=== PATIENT | female | born 1990 | race Caucasian/White ===

== ENCOUNTER 2023-04-09 17:47 | Emergency (ER) | payer BC ==
[~2023-04-09] VITALS: Ht 152.4 cm; Wt 84.6 kg
[2023-04-09 18:52] LABS: Basophils # (auto) 0 10 ^3/uL (0-0.2); Basophils % (auto) 0.2 % (0.0-2.0); Eosinophils # (auto) 0.2 10 ^3/uL (0-0.8); Eosinophils % (auto) 1.2 % (0.0-7.0); Hemoglobin 13.6 g/dL (12.2-16.2); Lymphocytes # (auto) 1.6 10 ^3/uL (0.4-5.4); Lymphocytes % (auto) 13.1 % (10.0-50.0); Mean Corpuscular Hemoglobin 27.3 pg (28.0-32.0); Mean Corpuscular Hgb Conc. 33.2 g/dL (32.0-36.0); Mean Corpuscular Volume 82.4 fL (80.0-100.0); Monocytes # (auto) 0.9 10 ^3/uL (0-1.3); Monocytes % (auto) 7.4 % (0.0-12.0); Neutrophils # (auto) 9.9 10 ^3/uL (1.6-8.6); Neutrophils % (auto) 78.1 % (37.0-80.0); Red Blood Cells 4.97 10^6/uL (4.0-5.20); Red Cell Distribution Width 16.6 % (11.8-14.3); White Blood Cell 12.6 10^3/uL (4.4-10.8)
[2023-04-09 19:09] LABS: Alanine Aminotransferase 66 U/L (7-40); Albumin 4.6 g/dL (3.2-4.8); Alkaline Phosphatase 147 U/L (46-116); Anion Gap 9 (5-15); Aspartate Aminotransferase 81 U/L (13-40); BUN/Creatinine Ratio 10.1 (10.0-20.0); Blood Urea Nitrogen 7 mg/dL (9-23); Calcium 9.1 mg/dL (8.5-10.1); Carbon Dioxide 23 mmol/L (20-30); Chloride 107 mmol/L (98-107); Glucose 98 mg/dL (74-106); Potassium 3.9 mmol/L (3.5-5.1); Sodium 139 mmol/L (136-145); Total Protein 7.8 g/dL (5.7-8.2)
[2023-04-09] MEDS ORDERED: SODIUM CHLORIDE 0.9% 1,000 ML IV ONE (19:30)
[2023-04-09] MEDS ORDERED: ONDANSETRON HCL 4 MG/2 ML VIAL IV ONE (19:30)
[2023-04-09] MEDS ORDERED: HYDROmorphone HCL 2 MG/ML VL/or syr IV ONE (19:30)
[2023-04-09 19:31] LABS: Lipase 1036 U/L (12-53)
[2023-04-09 19:39] LABS: Urine Bacteria NONE SEEN /hpf (None Seen); Urine Blood 1+ /uL (Negative); Urine Clarity Clear (Clear); Urine Color Yellow (Yellow); Urine Mucus FEW (None Seen); Urine Protein, UAD Negative (Negative); Urine Specific Gravity 1.019 (1.001-1.035); Urine Urobilinogen Normal (Negative); Urine WBC 2 /hpf (0 - 5); Urine pH 5.5 (5.0-8.0)
[2023-04-09 21:00] VITALS: PULSE 83; RESP 20; TEMP 98.1; O2SAT 97
[2023-04-09 21:44] VITALS: BP 124/77; PULSE 86; RESP 20
== END 2023-04-10 01:16 | disposition left against medical advice (07) ==
LOC: ER 17:47
DX: K80.20 Calculus of gallbladder without cholecystitis without obstruction (principal); R10.2 Pelvic and perineal pain
CPT/HCPCS: 36415; 76705; 80053; 81001; 81025; 83690; 84702; 85025; 96361; 96374; 96375; 99285; J1170; J2405; J7030